=== PATIENT | male | born 1995 | race Two or more races ===

== ENCOUNTER 2020-09-25 23:54 | Emergency (ER) | payer SELFPAY ==
[~2020-09-25] VITALS: Ht 167.6 cm; Wt 61.2 kg
--- NOTE | 2020-09-26 | NUR ---
PATIENT IS AAOX4. NO SOB. BREATHING EVENLY AND UNLABORED ON ROOM AIR. CONNECTED TO THE MONITOR.
[2020-09-26] MEDS ORDERED: NALO1DIS2 IJ (01:16)
--- NOTE | 2020-09-26 01:33 | NUR ---
PATIENT CALLED FRIEND TO COME PICK HIM UP.
--- NOTE | 2020-09-26 01:40 | NUR ---
IV removed. Catheter intact and site benign. Pressure and 4x4 applied to site. No bleeding noted.
--- NOTE | 2020-09-26 01:40 | NUR ---
Patient discharged to home in stable condition. Written and verbal after care instructions given. Patient verbalizes understanding of instruction.
--- NOTE | 2020-09-26 01:40 | NUR ---
Patient is ambulatory with a steady gait.
--- NOTE | 2020-09-26 01:42 | NUR ---
PATIENT IS PICKED UP BY FRIEND.
[2020-09-26 01:46] VITALS: BP 123/75
== END 2020-09-26 01:47 | disposition home or self-care (01) ==
LOC: ER 09-26 00:10
DX: T40.601A Poisoning by unspecified narcotics, accidental (unintentional), initial encounter (principal); Y92.89 Other specified places as the place of occurrence of the external cause